=== PATIENT | male | born 1990 | race Caucasian/White ===

== ENCOUNTER 2019-12-11 00:29 | Emergency (ER) | payer OTHER ==
[~2019-12-11] VITALS: Ht 172.7 cm; Wt 162.8 kg
[2019-12-11 00:31] VITALS: BP 191/117
--- NOTE | 2019-12-11 00:37 | NUR ---
PT TAKEN TO BED 06 WITH STEADY GAIT.
--- NOTE | 2019-12-11 00:45 | NUR ---
NOSE CLIP PLACED ON PT TO AID IN STOPPING BLEEDING
--- NOTE | 2019-12-11 00:47 | NUR ---
Dr. Falcon examining patient.
[2019-12-11] MEDS ORDERED: TRANEXAMIC ACID 1,000 MG/10 ML VIAL MC ONE (00:50)
--- NOTE | 2019-12-11 00:53 | NUR ---
MED PLACED AT BEDSIDE FOR MD GREEN.
--- NOTE | 2019-12-11 01:14 | NUR ---
29 YEAR OLD MALE COMPLAINS OF NOSE BLEED X 3-4 DAYS. PT STATES DENIES TRAUMA, N/V/D, OR ANY OTHER COMPLAINTS. PT AOX4, BREATHING EVEN AND UNLABORED, SKIN WARM AND DRY. BED IN LOWEST POSITION, LOCKED, BED RAIL UPX1. PMH - DENIES ALLERGIES - NKA
--- NOTE | 2019-12-11 01:49 | NUR ---
Patient discharged with v/s stable. Written and verbal after care instructions given and explained. Patient alert, oriented and verbalized understanding of instructions. Ambulatory with steady gait. All questions addressed prior to discharge. ID band removed. Patient advised to follow up with PMD. Rx of SALINE NASAL SPRAY given. Patient educated on indication of medication including possible reaction and side effects. Opportunity to ask questions provided and answered.
[2019-12-11] MEDS ORDERED: cloNIDine 0.1 MG TAB PO ONE (01:50)
--- NOTE | 2019-12-11 01:51 | NUR ---
CATAPRESS NOT GIVEN, ORDER RECEIVED AFTER PATIENT RECEIVED D/C INSTRUCTIONS AND LEFT ED
[2019-12-11 01:55] VITALS: BP 177/100
== END 2019-12-11 01:49 | disposition home or self-care (01) ==
LOC: MED 00:29
DX: R04.0 Epistaxis (principal); I10 Essential (primary) hypertension
CPT/HCPCS: 99283; J3490

== ENCOUNTER 2019-12-12 21:16 | Emergency (ER) | payer OTHER ==
[~2019-12-12] VITALS: Ht 172.7 cm; Wt 160.1 kg
--- NOTE | 2019-12-12 22:12 | NUR ---
AMBULATED TO ER BED 7
[2019-12-12 22:13] VITALS: BP 130/85
[2019-12-12] MEDS ORDERED: TRANEXAMIC ACID 1,000 MG/10 ML VIAL MC ONE (22:30)
--- NOTE | 2019-12-12 22:35 | NUR ---
MEDICATION PREPARED AT BEDSIDE FOR ERMD
--- NOTE | 2019-12-12 22:45 | NUR ---
29 YEAR OLD MALE COMPLAINS OF NOSEBLEEDING X 6 DAYS. PT STATES THAT HE HAS NOT FOLLOWED UP WITH PCP REGARDING SITUATION SINCE PREVIOUS DISCHARGE. PT DENIES PAIN OR ANY OTHER COMPLAINTS. PT HAS GAUZE IN NOSE TO STOP BLEEDING. PT STATES NOTHING PROVOKES BLEEDING, IT JUST STARTED HAPPENING SUDDENLY. PT AOX4, BREATHING EVEN AND UNLABORED, SKIN WARM AND DRY. BED IN LOWEST POSITION, LOCKED, BED RAIL UPX1. PMH - DENIES ALLERGIES - NKA
--- NOTE | 2019-12-12 23:22 | NUR ---
PT STILL BLEEDING FROM NOSE, ERMD AT BEDSIDE
[2019-12-13 00:25] VITALS: BP 130/85
--- NOTE | 2019-12-13 00:25 | NUR ---
Patient discharged with v/s stable. Written and verbal after care instructions given and explained. Patient alert, oriented and verbalized understanding of instructions. Ambulatory with steady gait. All questions addressed prior to discharge. ID band removed. Patient advised to follow up with PMD. Rx of CLINDAMYCIN HYDROCHLORIDE given. Patient educated on indication of medication including possible reaction and side effects. Opportunity to ask questions provided and answered.
== END 2019-12-13 00:25 | disposition home or self-care (01) ==
LOC: MED 21:16
DX: R04.0 Epistaxis (principal)
CPT/HCPCS: 30901; 99284; J3490